=== PATIENT | female | born 1965 ===

== ENCOUNTER 2018-03-07 11:05 | Emergency (ER) | payer OTHER ==
[2018-03-07 11:17] VITALS: BP 161/89; PULSE 82; RESP 20; TEMP 98.2; O2SAT 100
--- NOTE | 2018-03-07 11:54 | C.PDOC ---
History Of Present Illness 52 year old female presents to the ED for evaluation onf right-sided back and hip pain for two days. Patient describes her pain as an aching sensation that is worse when walking or climbing up the stairs. She has history of occasional back pain, but states symptoms never radiates to her hip. Patient denies abdominal pain, urinary/bladder incontinence, dysuria, recent injuries/falls, or extremity numbness/weakness. Time Seen by Provider: 03/07/18 11:32 Chief Complaint (Nursing): Hip Pain History Per: Patient History/Exam Limitations: no limitations Onset/Duration Of Symptoms: Days (2) Current Symptoms Are (Timing): Still Present Additional History Per: Patient Past Medical History Reviewed: Historical Data, Nursing Documentation, Vital Signs Vital Signs: Last Vital Signs Temp 98.2 F 03/07/18 11:14 Pulse 82 03/07/18 11:14 Resp 20 03/07/18 11:14 BP 161/89 H 03/07/18 11:14 Pulse Ox 100 03/07/18 11:14 - Medical History PMH: Gastritis Surgical History: No Surg Hx Family History: States: Unknown Family Hx - Social History Hx Alcohol Use: Yes Hx Substance Use: No - Immunization History Hx Tetanus Toxoid Vaccination: No Hx Influenza Vaccination: No Hx Pneumococcal Vaccination: No Review Of Systems Gastrointestinal: Negative for: Abdominal Pain Genitourinary: Negative for: Incontinence Musculoskeletal: Positive for: Back Pain (right-sided ), Other (hip pain ) Neurological: Negative for: Weakness, Numbness Physical Exam - Physical Exam Appears: Non-toxic, No Acute Distress Skin: Normal Color, Warm, Dry Head: Atraumatic, Normacephalic Eye(s): bilateral: Normal Inspection Oral Mucosa: Moist Neck: Supple Chest: Symmetrical, No Deformity Back: No Vertebral Tenderness, No Paraspinal Tenderness Extremity: Normal ROM (normal internal and external rotation of hip), No Tenderness, Capillary Refill (less than 2 seconds ), No Deformity, No Swelling Neurological/Psych: Oriented x3, Normal Speech, Normal Cognition, Normal Sensation Gait: Steady ED Course And Treatment O2 Sat by Pulse Oximetry: 100 (on RA) Pulse Ox Interpretation: Normal Medical Decision Making Medical Decision Making: Impression: 52 year old female with right-sided back and hip pain, likely arthralgia or muscle strain. No trauma thus xray not clinically indicated. Plan: * Flexeril PO * Toradol IM Progress: On reassessment, patient is resting comfortably, showing no signs of distress and reports an improvement in her pain. Patient is ambulatory in the ED without distress and is stable for discharge. Patient is advised to follow up with her PMD within 1-2 days for further evaluation. Advised to return to the ED if symptoms persist or worsen. Disposition Counseled Patient/Family Regarding: Diagnosis, Need For Followup, Rx Given - Disposition Referrals: Irene Calvo MD [Staff Provider] - Disposition: HOME/ ROUTINE Disposition Time: 11:50 Condition: STABLE Additional Instructions: Apply heat to area 15 minutes three times a day. Take Motrin as needed for pain every 6 hours, with food to not upset stomach. Take Flexeril for muscle pain and spasm, caution can cause drowsiness. Follow up with orthopedic if pain persists over one week. Aplicar calor al [place] 15 minutos sarah veces al da. [place] Motrin segn sea necesario para el dolor cada 6 horas, con alimentos que no molesten el estmago. [place] Flexeril para el dolor muscular y el espasmo, la precaucin puede causar somnolencia. Jeanne un seguimiento con ortopedia si el dolor persiste concetta noreen semana. Prescriptions: Cyclobenzaprine [Cyclobenzaprine HCl] 10 mg PO TID #30 tab Ibuprofen [Motrin] 600 mg PO Q8 #30 tab Instructions: Low Back Pain in Adults Forms: [facility] (Slovenian) Print Language: MALTESE - POA Present On Arrival: None - Clinical Impression Clinical Impression: Hip pain, Low back pain - PA / MYSTERY SHOPPER / Resident Statement MD/DO has reviewed & agrees with the documentation as recorded. - Scribe Statement The provider has reviewed the documentation as recorded by the Scribe (Ashley Manning) All medical record entries made by the Scribe were at my direction and personally dictated by me. I have reviewed the chart and agree that the record accurately reflects my personal performance of the history, physical exam, medical decision making, and the department course for this patient. I have also personally directed, reviewed, and agree with the discharge instructions and disposition.
== END 2018-03-07 12:22 | disposition home or self-care (01) ==
LOC: C.ER 11:05
DX: M54.5 Low back pain (principal); M25.551 Pain in right hip
CPT/HCPCS: 96372; 99283; J1885